=== PATIENT | female | born 1985 | race Two or more races ===

== ENCOUNTER 2024-03-14 18:29 | Inpatient (IN) | payer MEDICAID, OTHER ==
[~2024-03-14] VITALS: Ht 157.5 cm; Wt 116.4 kg
--- NOTE | 2024-03-14 18:38 | ECG ---
[facility] Test Date: 2024-03-14 Test Time: 18:33:48 Pat Name: KENTON WATT Department: er Room: 0279 Gender: F Unit Supervisor: gp : 1985 Requested By: CASSANDRA CASH Order Number: [id number] Reading MD: Wood Wiley Measurements Intervals [place] Rate: 132 P: 20 CT: 99 QRS: 40 QRSD: 90 T: -3 QT: 334 QTc: 495 Interpretive Statements Sinus tachycardia Borderline low voltage, extremity leads Borderline prolonged QT interval Electronically Signed On 03-15-2024 18:27:42 PST by Wood Wiley Please click the below link to view image of tracing.
[2024-03-14] MEDS: SODIUM CHLORIDE 0.9% 1,000 ML IV ONE ×2 (19:01→20:00)
--- NOTE | 2024-03-14 19:12 | ED.PDOC ---
History of Present Illness HPI Comments 38 y/o F is BIBA with c/o abnormal vaginal bleeding and dizziness, today. Patient endorses on unprovoked onset of heavy bleeding following her usual period onset for the past 3x days, with associated intermittent dizziness episodes since. She comments on going through her pads every 30x minutes and have a near-syncopal episode, today. Per EMS report, patient was found with a blood systolic blood pressure in the low 80's and tachycardic with a rate of 144 and was given IV fluids en route. Patient has no reported weakness, lightheadedness, fever, chills, abdominal pain, or other associated symptoms or modifiers at thirst time. Chief Complaint: Vaginal Bleed Time Seen by MD: 19:00 Primary Care Provider: UNKNOWN Reviewed Notes: Nurses Notes, Wharf Attendant Notes, Medications, Allergies Allergies: Coded Allergies: NO KNOWN ALLERGIES (Unverified , 03/14/24) Information Source: Patient, Emergency Med Personnel Mode of Arrival: EMS Severity: Moderate Timing: Days Duration: Since onset Prehospital treatment: 12 Lead EKG, Director Title, IVF Past Medical History Past Medical History (Other): obesity Surgical History: Denies all surgeries GASFITTER History: Denies all GASFITTER Hx Family History Family History: Unknown Social History Smoker: Non-Smoker Alcohol: Denies ETOH Use Drugs: Denies Drug Use Lives In: Home Genitourinary: reports: abnormal vagina bleeding Neurological: reports: dizziness All Other Systems: Reviewed and Negative (negative unless otherwise stated above or in HPI) Physical Exam General Appearance: Moderate Distress, Obese HEENT: Normal ENT Inspection, Pharynx Normal, TMs Normal Neck: Full Range of Motion, Non-Tender, Normal, Normal Inspection Respiratory: Chest Non-Tender, Lungs Clear, No Accessory Muscle Use, No Respiratory Distress, Normal Breath Sounds Cardiovascular: No Edema, No JVD, No Murmur, No Gallop, Normal Peripheral Pulses, Regular Rate/Rhythm Breast Exam: Deferred Gastrointestinal: No Organomegaly, Non Tender, No Pulsatile Mass, Normal Bowel Sounds, Soft Genitalia: Deferred Pelvic: Deferred Rectal: Deferred Extremities: No calf tenderness, Normal capillary refill, Normal inspection, Normal range of motion, Non-tender, No pedal edema Musculoskeletal : Apperance: Normal Neurologic: Alert, showroom manager II-XII nml as Tested, No Motor Deficits, Normal Affect, Normal Mood, No Sensory Deficits Cerebellar Function: Normal Reflexes: Normal Skin: Dry, Pallor, Warm Lymphatic: No Adenopathy Was a procedure done? Was a procedure done?: No EKG EKG : Pulse Rate (adult): 132 [place]: Normal Cardiac Rhythm: ST Block: None Hypertrophy: None ST: Normal Differential Dx Considerations may include: anemia, hypotension, vertigo, electrolyte imbalance, dehydration X-Ray, Labs, Meds, VS Vital Signs Date Time Temp Pulse Resp B/P (MAP) Pulse Ox O2 Delivery O2 Flow Rate FiO2 03/14/24 21:30 98.4 124 18 102/54 98.4 03/14/24 21:10 98.6 125 23 104/55 98.6 03/14/24 19:12 132 03/14/24 19:00 129 03/14/24 18:59 129 20 98/51 (67) 98 03/14/24 18:39 98.8 138 19 104/66 (79) 99 03/14/24 18:33 132 Lab Test 03/14/24 18:59 Range/Units White Blood Count 20.3 H 4.4-10.8 10^3/uL Red Blood Count 1.43 L 4.0-5.20 10^6/uL Hemoglobin 4.9 *L 12.2-16.2 g/dL Hematocrit 14.9 L 36.0-46.0 % Mean Corpuscular Volume 103.7 H 80.0-100.0 fL Mean Corpuscular Hemoglobin 34.1 H 28.0-32.0 pg Mean Corpuscular Hemoglobin Concent 32.9 32.0-36.0 g/dL Red Cell Distribution Width 13.8 11.8-14.3 % Platelet Count 196 140-450 10^3/uL Mean Platelet Volume 8.9 6.9-10.8 fL Neutrophils (%) (Auto) 37.0-80.0 % Lymphocytes (%) (Auto) 10.0-50.0 % Monocytes (%) (Auto) 0.0-12.0 % Basophils (%) (Auto) 0.0-2.0 % Neutrophils # (Auto) 1.6-8.6 10 ^3/uL Lymphocytes # (Auto) 0.4-5.4 10 ^3/uL Monocytes # (Auto) 0-1.3 10 ^3/uL Differential Total Cells Counted 100.0 100 Neutrophils % (Manual) 73 37.0-80.0 Band Neutrophils % (Manual) 4 Lymphocytes % (Manual) 18 10.0-50.0 Monocytes % (Manual) 5 0-12 Eosinophils % (Manual) 0 0-7 Basophils % (Manual) 0 0.0-2.0 Metamyelocytes % (manual) 0 Myelocytes % (Manual) 0 Promyelocytes % (Manual) 0 Blast Cells % (Manual) 0 Reactive Lymphocytes 0 Platelet Estimate Adequate Prothrombin Time 12.6 H 9.3-11.8 sec Prothrombin Time INR 1.21 H 0.9-1.15 Activated Partial Thromboplast Time 20.3 L 24.5-34.5 SEC D-Dimer, Quantitative 0.39 0.0-0.49 mg/L FEU Sodium Level 139 136-145 mmol/L Potassium Level 4.2 3.5-5.1 mmol/L Chloride Level 107 98-107 mmol/L Carbon Dioxide Level 23 20-31 mmol/L Anion Gap 9 5-15 Blood Urea Nitrogen 18 9-23 mg/dL Creatinine 0.97 0.550-1.02 mg/dL Glomerular Filtration Rate Calc 77 >90 mL/min BUN/Creatinine Ratio 18.6 10.0-20.0 Serum Glucose 200 H 74-106 mg/dL Calcium Level 7.5 L 8.7-10.4 mg/dL Current Medications Medications (Trade) Dose Ordered Sig/Diane Route Start Time Stop Time Status Last Admin Sodium Chloride 1,000 ml @ 1,000 mls/hr Q1H ONCE IV 03/14/24 18:45 03/14/24 19:44 DC 03/14/24 19:01 Sodium Chloride 1,000 ml @ 150 mls/hr Q6H40M ONCE IV 03/14/24 18:45 03/15/24 01:24 03/14/24 20:00 [place] [id number] Ph: [phone] DIAGNOSTIC IMAGING Diagnostic Imaging Report : [id number] Signed PATIENT: KENTON WATT ACCT: [id number] UNIT: [id number] : 1985 LOC: ER ROOM / BED: / AGE / SEX: 38 / F ADM STATUS: REG ER SERVICE [id number] ORDERING PHYSICIAN: CASSANDRA CASH MD PROCEDURE(s): PELUS - PELVIC REASON: vaginal bleed ORDER NUMBER(s): [id number], ACCESSION NUMBER(s): [id number] PELVIC ULTRASOUND WITH TRANSABDOMINAL IMAGING CLINICAL HISTORY: vaginal bleed COMPARISON: None TECHNIQUE: Transabdominal and transvaginal grayscale, color-flow Doppler, and duplex Doppler was performed. FINDINGS: Uterus: The uterus measures 10.8 x 4.8 x 3.8 cm. Uterine myometrium is grossly unremarkable. Endometrium: Double thickness of the endometrial stripe measures 0.3 cm Endometrial thickness is uniform. Right ovary measures 2.9 x 2.4 x 1.6 cm. Left ovary measures 3.5 x 2.3 x 4.6 cm. Both ovaries demonstrate dopplerable blood flow on spectral analysis. No significant free fluid visualized. IMPRESSION: No acute findings as visualized. ATED BY: CHANDLER RUCKER MD DICTATED DATE/TIME: 03/14/241940 SIGNED BY: CHANDLER RUCKER MD SIGNED DATE/TIME: 03/14/241940 CC: Hemoglobin 4.9. WBC is 20.3. Calcium is 7.5 CMP is normal except for glucose which is 200 Rocephin was ordered. Calcium gluconate was ordered. 2L IV fluid given. Urine test pending Blood transfusion initiated Dr. Manrique from [facility] was consulted. The patient will be admitted to the hospitalist for further evaluation and care. Time of 1ST Reevaluation: 19:30 Reevaluation 1ST: Unchanged Patient Education/Counseling: Diagnosis, Treatment Family Education/Counseling: No Family Present Departure 1 Departure Time of Disposition: 21:34 Impression: Primary Impression: Anemia Qualified Codes: D64.9 - Anemia, unspecified Additional Impressions: Vaginal bleeding Hypocalcemia Leukocytosis Qualified Codes: D72.829 - Elevated white blood cell count, unspecified Disposition: ADMITTED INPATIENT Admit to: [facility] Condition: Guarded Critical Care Note Critical Care Time?: Yes (55 min-critical care time only) Stability Stability form required: No Heart Score Heart Score: Heart Score Response (Comments) Value History N/A 0 EKG N/A 0 Age N/A 0 Risk Factors N/A 0 Troponin N/A 0 Total 0 I personally scribed for CASSANDRA CASH MD ([email or web address]) on 03/14/24 at 19:12. Electronically submitted by Milo Francis ([email or web address]). CASSANDRA CASH MD Mar 14, 2024 19:12
[2024-03-14 19:31] LABS: Hematocrit 14.9 % (36.0-46.0); Mean Corpuscular Hemoglobin 34.1 pg (28.0-32.0); Mean Corpuscular Hgb Conc. 32.9 g/dL (32.0-36.0); Mean Corpuscular Volume 103.7 fL (80.0-100.0); Platelet Count (auto) 196 10^3/uL (140-450); Red Blood Cells 1.43 10^6/uL (4.0-5.20); Red Cell Distribution Width 13.8 % (11.8-14.3); White Blood Cell 20.3 10^3/uL (4.4-10.8)
[2024-03-14 19:33] LABS: Hemoglobin 4.9 g/dL (12.2-16.2)
[2024-03-14 19:34] LABS: Anion Gap 9 (5-15); Carbon Dioxide 23 mmol/L (20-31); Potassium 4.2 mmol/L (3.5-5.1); Sodium 139 mmol/L (136-145)
[2024-03-14 19:35] LABS: Basophils % (manual) 0 (0.0-2.0); Blast Cells 0; Eosinophils % (manual) 0 (0-7); Metamyelocytes % 0; Myelocytes % 0; Promyelocytes % 0; Reactive Lymphocytes 0
[2024-03-14 19:37] LABS: INR 1.21 (0.9-1.15); Partial Thromboplastin Time 20.3 SEC (24.5-34.5); Prothrombin Time 12.6 sec (9.3-11.8)
[2024-03-14 19:40] LABS: BUN/Creatinine Ratio 18.6 (10.0-20.0); Blood Urea Nitrogen 18 mg/dL (9-23)
[2024-03-14 19:42] LABS: Calcium 7.5 mg/dL (8.7-10.4); Chloride 107 mmol/L (98-107); Glucose 200 mg/dL (74-106)
--- NOTE | 2024-03-14 19:43 | DVH ---
PELVIC ULTRASOUND WITH TRANSABDOMINAL IMAGING CLINICAL HISTORY: vaginal bleed COMPARISON: None TECHNIQUE: Transabdominal and transvaginal grayscale, color-flow Doppler, and duplex Doppler was per formed. FINDINGS: Uterus: The uterus measures 10.8 x 4.8 x 3.8 cm. Uterine myometrium is grossly unremarkable. Endometrium: Double thickness of the endometrial stripe measures 0.3 cm Endometrial thickness is unif orm. Right ovary measures 2.9 x 2.4 x 1.6 cm. Left ovary measures 3.5 x 2.3 x 4.6 cm. Both ovaries demonst rate dopplerable blood flow on spectral analysis. No significant free fluid visualized. IMPRESSION: No acute findings as visualized.
[2024-03-14 20:46] LABS: Band Neutrophils % (manual) 4; Lymphocytes % (manual) 18 (10.0-50.0); Monocytes % (manual) 5 (0-12); Platelet Estimate Adequate
[2024-03-14 21:10] VITALS: BP 104/55; PULSE 125; RESP 23; TEMP 98.6
[2024-03-14 21:30] VITALS: BP 102/54; PULSE 124; RESP 18; TEMP 98.4
[2024-03-14] MEDS: cefTRIAXone 1GM/50ML D5W 50 ML IV ONE (22:20)
[2024-03-14] MEDS ORDERED: ONDANSETRON HCL 4 MG/2 ML VIAL IV PRN (22:30)
[2024-03-14] MEDS ORDERED: ACETAMINOPHEN 325 MG TAB PO PRN (22:30)
--- NOTE | 2024-03-14 22:36 | DVHHP2 ---
History of Present Illness Reason for Visit: DIZZINESS History of Present Illness 38 year old female presents for evaluation dizziness. Patient endorses a four day history of abnormal vaginal bleed. Patient reports having her last. Six weeks ago which was normal. Patient has been heavy vaginal bleed over the past four days with blood clots and today has been using one pad every 30-40 minutes. She developed chest pain with associated shortness for breath and dizziness. On arrival patient's pressure was in the 80s and heart rate in the 140s. She denies any other acute complaints at the moment. Past Medical History Denies Past Surgical History Denies Family History Noncontributory Smoke: No ALCOHOL: none Drugs: None Lives: with Family Review of Systems Review of Systems Review of systems are currently negative otherwise addressed HPI. Allergies: Coded Allergies: NO KNOWN ALLERGIES (Unverified , 03/14/24) Exam Vital Signs Vital Signs Date Time Temp Pulse Resp B/P (MAP) Pulse Ox O2 Delivery O2 Flow Rate FiO2 03/14/24 21:30 98.4 124 18 102/54 98.4 03/14/24 19:30 Room Air* 0 21 03/14/24 18:59 98 Exam Gen: 38-year-old female in mild distress, obese Skin: Warm, dry, normal color and texture, no rash. HEENT: Normocephalic atraumatic, mucous membranes moist and pink. Neck: Cervical and supraclavicular nodes normal without enlargement, trachea is midline, thyroid gland is normal without masses. Pulmonary: Clear to auscultation and percussion bilaterally. Cardiac: Sinus tachycardia Abdomen: Soft, nontender, nondistended, bowel sounds present all 4 quadrants, no guarding, no rigidity, no organomegaly. Extremities: No cyanosis, clubbing, no edema Neuro: Cranial nerves II through XII grossly intact, normal affect and speech, no focal motor deficits. Labs/Xrays ORDERING PHYSICIAN: CASSANDRA CASH MD PROCEDURE(s): PELUS - PELVIC REASON: vaginal bleed ORDER NUMBER(s): [id number], ACCESSION NUMBER(s): [id number] PELVIC ULTRASOUND WITH TRANSABDOMINAL IMAGING CLINICAL HISTORY: vaginal bleed COMPARISON: None TECHNIQUE: Transabdominal and transvaginal grayscale, color-flow Doppler, and duplex Doppler was performed. FINDINGS: Uterus: The uterus measures 10.8 x 4.8 x 3.8 cm. Uterine myometrium is grossly unremarkable. Endometrium: Double thickness of the endometrial stripe measures 0.3 cm Endometrial thickness is uniform. Right ovary measures 2.9 x 2.4 x 1.6 cm. Left ovary measures 3.5 x 2.3 x 4.6 cm. Both ovaries demonstrate dopplerable blood flow on spectral analysis. No significant free fluid visualized. IMPRESSION: No acute findings as visualized. Labs Test 03/14/24 18:59 Range/Units White Blood Count 20.3 H 4.4-10.8 10^3/uL Red Blood Count 1.43 L 4.0-5.20 10^6/uL Hemoglobin 4.9 *L 12.2-16.2 g/dL Hematocrit 14.9 L 36.0-46.0 % Mean Corpuscular Volume 103.7 H 80.0-100.0 fL Mean Corpuscular Hemoglobin 34.1 H 28.0-32.0 pg Mean Corpuscular Hemoglobin Concent 32.9 32.0-36.0 g/dL Red Cell Distribution Width 13.8 11.8-14.3 % Platelet Count 196 140-450 10^3/uL Mean Platelet Volume 8.9 6.9-10.8 fL Neutrophils (%) (Auto) 37.0-80.0 % Lymphocytes (%) (Auto) 10.0-50.0 % Monocytes (%) (Auto) 0.0-12.0 % Basophils (%) (Auto) 0.0-2.0 % Neutrophils # (Auto) 1.6-8.6 10 ^3/uL Lymphocytes # (Auto) 0.4-5.4 10 ^3/uL Monocytes # (Auto) 0-1.3 10 ^3/uL Differential Total Cells Counted 100.0 100 Neutrophils % (Manual) 73 37.0-80.0 Band Neutrophils % (Manual) 4 Lymphocytes % (Manual) 18 10.0-50.0 Monocytes % (Manual) 5 0-12 Eosinophils % (Manual) 0 0-7 Basophils % (Manual) 0 0.0-2.0 Metamyelocytes % (manual) 0 Myelocytes % (Manual) 0 Promyelocytes % (Manual) 0 Blast Cells % (Manual) 0 Reactive Lymphocytes 0 Platelet Estimate Adequate Prothrombin Time 12.6 H 9.3-11.8 sec Prothrombin Time INR 1.21 H 0.9-1.15 Activated Partial Thromboplast Time 20.3 L 24.5-34.5 SEC D-Dimer, Quantitative 0.39 0.0-0.49 mg/L FEU Sodium Level 139 136-145 mmol/L Potassium Level 4.2 3.5-5.1 mmol/L Chloride Level 107 98-107 mmol/L Carbon Dioxide Level 23 20-31 mmol/L Anion Gap 9 5-15 Blood Urea Nitrogen 18 9-23 mg/dL Creatinine 0.97 0.550-1.02 mg/dL Glomerular Filtration Rate Calc 77 >90 mL/min BUN/Creatinine Ratio 18.6 10.0-20.0 Serum Glucose 200 H 74-106 mg/dL Calcium Level 7.5 L 8.7-10.4 mg/dL Assessment/Plan Assessment/Plan Assessment Symptomatic anemia Menorrhagia Hyperglycemia Coagulopathy Plan Admit the patient to [facility] to the hospitalist OBGYN aware of the case and will consult on the patient in the morning Transfuse 4 units of packed red cells Continue treatment per orders. Plan discussed with: Patient My Orders Orders - ROBBIN TREVIÑO Procedure Category Date Status Time * Documentation Specialist Consultation CONS 03/14/24 Transmitted 22:25 Hemoglobin A1c LAB 03/14/24 Transmitted 22:25 Ceftriaxone Ivpb PHA 03/15/24 Transmitted Rocephin 09:00 Admit ADMIT 03/14/24 Transmitted 22:25 Ondansetron Hcl PHA 03/14/24 Transmitted (Zofran) 22:30 Complete Blood Count LAB 03/15/24 Verified 04:00 Comprehensive LAB 03/15/24 Verified Metabolic Panel 04:00 Condition: Stable GEORGE 03/14/24 Transmitted 22:25 Acetaminophen Tablet PHA 03/14/24 Transmitted (Tylenol Tablet) 22:30 Bedrest With Bathroom GEORGE 03/14/24 Transmitted Privileg 22:25 Consistent DIET 03/15/24 Transmitted Carb(Ccho)Diabetes Breakfast Date of Service: Mar 14, 2024 Billing Provider: ROBBIN TREVIÑO Common Visit Codes: [id number] INP/OBS CARE (HIGH) ROBBIN TREVIÑO Mar 14, 2024 22:36
[2024-03-14] MEDS: CALCIUM GLUC 1,000mg/50ml-NS 50 ML IV ONE (22:52)
[2024-03-14 23:09] LABS: Urine Bacteria MANY /hpf (None Seen); Urine Blood 3+ /uL (Negative); Urine Clarity Ex.Turbid (Clear); Urine Mucus FEW (None Seen); Urine Protein, UAD 2+ (Negative); Urine Specific Gravity 1.018 (1.001-1.035); Urine Squamous Epithelial Cell None Seen /hpf (<5); Urine Urobilinogen Normal (Negative); Urine WBC 768 /hpf (0 - 5); Urine WBC Clumps PRESENT /hpf (None Seen)
[2024-03-14 23:10] LABS: Urine Color DARK RED (Yellow)
[2024-03-15] VITALS (15 sets, daily range): BP systolic 107–136; BP diastolic 40–90; PULSE 71–122; RESP 15–20; TEMP 97.9–98.8; O2SAT 95–100
--- NOTE | 2024-03-15 00:09 | DVHINCON2 ---
Date of service: Mar 14, 2024 Reason for Consultation Blood loss anemia Heavy menses History of Present Illness HPI 38y female. GoPo LMP 03/11/24. Cycles are irregular since menarche at age 11 Menstrual cycles every 6 to 8 weeks, flow up to 10 days. Endorses heavy menses using 2-3 pads/hr for last 4 days Flow is now slow and not heavy. Denies pain or dysmenorrhea Patient admitted w/ symptomatic anemia, Hb 4.9 (macrocytic). 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 Patient is virgin, has never had intercourse with male or females. No hx of STI Pelvic US on admission is within normal limits ROS: + Facial hair, obesity, irreg menses. Denies melana stools or hematochezia PMHx: Obesity Past Surg Hx: none Family Hx: Denies FHx of ovarian, breast or uterine cancer Past Medical History Cardiac: No pertinent Hx Pulmonary: No pertinent Hx Central Nervous System: No pertinent Hx GI: No pertinent Hx Hemotology/Oncology: Anemia NOS Hepatobiliary: No pertinent Hx Psychiatric: No pertinent Hx Musculoskeletal: No pertinent Hx Rheumotologic: No pertinent Hx Infectious Disease: No peritnent Hx ENT: No pertinent Hx Renal/: No pertinent Hx Endocrine: No pertinent Hx Dermatology: No pertinent Hx Past Surgical History: No pertinent Hx Smoker: No Hx (Negative) Alocohol: None Drugs: None Lives with: With family Review of Systems Constitutional: Malaise, Weakness Ears, Nose, & Throat: No symptom reported Eyes: No symptom reported Pulmonary/Respiratory: No symptom reported Cardiovascular: Palpitations, Orthopnea, Lt Headedness Gastrointestinal: No symptom reported Genitourinary: No symptom reported Musculoskeletal: No symptom reported Skin: Other (Hirsutism +) Psychiatric: No symptom reported Endocrine: No symptom reported Hemotologic/Lymphatic: Easily bleeding, Anemia H&P Exam Vital Signs Vital Signs Date Time Temp Pulse Resp B/P (MAP) Pulse Ox O2 Delivery O2 Flow Rate FiO2 03/14/24 21:30 98.4 124 18 102/54 98.4 03/14/24 19:30 Room Air* 0 21 03/14/24 18:59 98 General Appeara: Obese Head Exam: Normal inspection Neck Exam: Normal inspection Eye Exam: bilateral eye PERRL Pulmonary/Respiratory: Normal inspection, Normal breath sounds, Lungs clear Cardiovascular/Chest: Normal inspection Abdominal Exam: Normal bowel sounds, No masses Rectal Exam: Deferred Pelvic Exam: Not done 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 FINDINGS: Uterus: The uterus measures 10.8 x 4.8 x 3.8 cm. Uterine myometrium is grossly unremarkable. Endometrium: Double thickness of the endometrial stripe measures 0.3 cm Endometrial thickness is uniform. Right ovary measures 2.9 x 2.4 x 1.6 cm. Left ovary measures 3.5 x 2.3 x 4.6 cm. Both ovaries demonstrate dopplerable blood flow on spectral analysis. No significant free fluid visualized. IMPRESSION: No acute findings as visualized. ATED BY: CHANDLER RUCKER MD DICTATED DATE/TIME: 03/14/241940 SIGNED BY: CHANDLER RUCKER MD SIGNED DATE/TIME: 03/14/241940 Labs Test 03/14/24 22:53 03/14/24 18:59 Range/Units Urine Color Dark red Yellow Urine Clarity Ex.turbid Clear Urine pH 7.0 5.0-9.0 Urine Specific [place] 1.018 1.001-1.035 Urine Protein 2+ H Negative Urine Ketones Trace Negative Urine Blood 3+ H Negative /uL Urine Nitrite Negative Negative Urine Bilirubin Negative Negative Urine Urobilinogen Normal Negative mg/dL Urine Leukocyte Esterase 3+ Negative /uL Urine RBC 6680 0 - 4 /hpf Urine WBC 768 0 - 5 /hpf Urine WBC Clumps Present None Seen /hpf Urine Squamous Epithelial Cells None seen <5 /hpf Urine Bacteria Many H None Seen /hpf Urine Mucus Few None Seen Urine Glucose Normal Normal mg/dL Urine Test Negative Negative White Blood Count 20.3 H 4.4-10.8 10^3/uL Red Blood Count 1.43 L 4.0-5.20 10^6/uL Hemoglobin 4.9 *L 12.2-16.2 g/dL Hematocrit 14.9 L 36.0-46.0 % Mean Corpuscular Volume 103.7 H 80.0-100.0 fL Mean Corpuscular Hemoglobin 34.1 H 28.0-32.0 pg Mean Corpuscular Hemoglobin Concent 32.9 32.0-36.0 g/dL Red Cell Distribution Width 13.8 11.8-14.3 % Platelet Count 196 140-450 10^3/uL Mean Platelet Volume 8.9 6.9-10.8 fL Neutrophils (%) (Auto) 37.0-80.0 % Lymphocytes (%) (Auto) 10.0-50.0 % Monocytes (%) (Auto) 0.0-12.0 % Basophils (%) (Auto) 0.0-2.0 % Neutrophils # (Auto) 1.6-8.6 10 ^3/uL Lymphocytes # (Auto) 0.4-5.4 10 ^3/uL Monocytes # (Auto) 0-1.3 10 ^3/uL Differential Total Cells Counted 100.0 100 Neutrophils % (Manual) 73 37.0-80.0 Band Neutrophils % (Manual) 4 Lymphocytes % (Manual) 18 10.0-50.0 Monocytes % (Manual) 5 0-12 Eosinophils % (Manual) 0 0-7 Basophils % (Manual) 0 0.0-2.0 Metamyelocytes % (manual) 0 Myelocytes % (Manual) 0 Promyelocytes % (Manual) 0 Blast Cells % (Manual) 0 Reactive Lymphocytes 0 Platelet Estimate Adequate Prothrombin Time 12.6 H 9.3-11.8 sec Prothrombin Time INR 1.21 H 0.9-1.15 Activated Partial Thromboplast Time 20.3 L 24.5-34.5 SEC D-Dimer, Quantitative 0.39 0.0-0.49 mg/L FEU Sodium Level 139 136-145 mmol/L Potassium Level 4.2 3.5-5.1 mmol/L Chloride Level 107 98-107 mmol/L Carbon Dioxide Level 23 20-31 mmol/L Anion Gap 9 5-15 Blood Urea Nitrogen 18 9-23 mg/dL Creatinine 0.97 0.550-1.02 mg/dL Glomerular Filtration Rate Calc 77 >90 mL/min BUN/Creatinine Ratio 18.6 10.0-20.0 Serum Glucose 200 H 74-106 mg/dL Calcium Level 7.5 L 8.7-10.4 mg/dL Assessment/Plan Admitting Diagnosis: 1. Symptomatic (macrocytic) Anemia 2. Menometrorrhagia 3. Possible PCOS syndrome Plan No acute CARD CLEANER intervention indicated at this time I have ordered labs, work up for AUB and macrocytic anemia Pelvic US is WNL and urine HCG is neg Recommend DMPA injection or OCP's (if not contraindicated, no liver disease) to regulate menses Can also consider Lysteda (Tranexamic acid TID x 5d each menses ) F/U in outpatient CARD CLEANER clinic for pelvic exam, PAP and PCOS work up and follow up once discharged Recommend hematology consult for eval of severe macrocytic anemia. CARD CLEANER will sign off. Plan discussed with: Patient Date of Service: Mar 15, 2024 Billing Provider: ELEONORA IVLLASENOR DO Common Visit Codes: CONSULT ONLY Consultation Codes: [id number] CONSULT <60MIN ELEONORA VILLASENOR DO Mar 15, 2024 00:09
[2024-03-15] MEDS ORDERED: CETI10CA PO (03:58)
[2024-03-15 11:35] LABS: Hematocrit 29.5 % (36.0-46.0); Hemoglobin 9.8 g/dL (12.2-16.2); Mean Corpuscular Hemoglobin 31.4 pg (28.0-32.0); Mean Corpuscular Hgb Conc. 33.1 g/dL (32.0-36.0); Platelet Count (auto) 150 10^3/uL (140-450); Red Cell Distribution Width 20.1 % (11.8-14.3); White Blood Cell 20.9 10^3/uL (4.4-10.8)
[2024-03-15 11:43] LABS: Alanine Aminotransferase 26 U/L (7-40); Alkaline Phosphatase 57 U/L (46-116); Anion Gap 8 (5-15); Aspartate Aminotransferase 24 U/L (13-40); BUN/Creatinine Ratio 17.8 (10.0-20.0); Bilirubin, Total 0.5 mg/dL (0.2-1.0); Blood Urea Nitrogen 16 mg/dL (9-23); Carbon Dioxide 24 mmol/L (20-31); Chloride 107 mmol/L (98-107); Sodium 139 mmol/L (136-145)
[2024-03-15 11:47] LABS: Basophils % (manual) 0 (0.0-2.0); Blast Cells 0; Eosinophils % (manual) 0 (0-7); Metamyelocytes % 0; Myelocytes % 0; Promyelocytes % 0; Reactive Lymphocytes 0
[2024-03-15 11:50] LABS: Folate (Folic Acid) 13.08 ng/mL (>5.38)
[2024-03-15 11:56] LABS: Albumin 3.2 g/dL (3.2-4.8); Calcium 8.2 mg/dL (8.7-10.4); Glucose 147 mg/dL (74-106)
[2024-03-15 12:11] LABS: Follicle Stimulating Hormone 1.5 IU/L (SEE BELOW); Leuteinizing Hormone 0.2 IU/L; Prolactin 11.05 ng/mL (2.8-29.2)
--- NOTE | 2024-03-15 12:16 | DVHPN2 ---
Reviewed: Care Plan, H&P, Labs, Medications, Previous Orders, Radiology Changes from previous H/P or p: No Changes Objective Vitals Vital Signs Date Time Temp Pulse Resp B/P (MAP) Pulse Ox O2 Delivery O2 Flow Rate FiO2 03/15/24 09:47 98.3 99 15 120/64 98.3 03/15/24 08:43 100 03/15/24 03:36 Room Air* 0 21 Intake/Output Intake and Output 03/15/24 07:00 Intake Total 2850 ml Output Total 0 ml Balance 2850 ml Intake Oral 100 ml IV Total 2150 ml Blood Product 600 ml Output Urine Total 0 ml Other 0 ml # Voids 1 Medications Current Medications Medications Dose Ordered Sig/Diane Route Start Time Stop Time Status Last Admin Dose Admin Ceftriaxone Sodium 50 ml @ 100 mls/hr DAILY@09 IV 03/16/24 09:00 Ondansetron HCl 4 mg Q4HP PRN IV 03/14/24 22:30 Acetaminophen 650 mg Q6HP PRN PO 03/14/24 22:30 Laboratory Results Laboratory Tests 03/15/24 11:00 Chemistry Test 03/14/24 18:59 03/15/24 11:00 Calcium Level 7.5 mg/dL (8.7-10.4) L 8.2 mg/dL (8.7-10.4) L Albumin 3.2 g/dL (3.2-4.8) Total Protein 5.0 g/dL (5.7-8.2) L Coagulation Test 03/14/24 18:59 Prothrombin Time 12.6 sec (9.3-11.8) H Prothrombin Time INR 1.21 (0.9-1.15) H Activated Partial Thromboplast Time 20.3 SEC (24.5-34.5) L D-Dimer, Quantitative 0.39 mg/L FEU (0.0-0.49) LFT Test 03/15/24 11:00 Alanine Aminotransferase (ALT) 26 U/L (7-40) Alkaline Phosphatase 57 U/L (46-116) Aspartate Amino Transferase (AST) 24 U/L (13-40) Total Bilirubin 0.5 mg/dL (0.2-1.0) HgA1c, TSH Test 03/15/24 11:00 Hemoglobin A1c 5.6 % A1C (<5.7) Thyroid Stimulating Hormone (TSH) 6.18 uIU/mL (0.55-4.78) H Urinalysis Test 03/14/24 22:53 Urine Color Dark red (Yellow) Urine Clarity Ex.turbid (Clear) Urine pH 7.0 (5.0-9.0) Urine Specific [place] 1.018 (1.001-1.035) Urine Protein 2+ (Negative) H Urine Ketones Trace (Negative) Urine Blood 3+ /uL (Negative) H Urine Nitrite Negative (Negative) Urine Bilirubin Negative (Negative) Urine Urobilinogen Normal mg/dL (Negative) Urine Leukocyte Esterase 3+ /uL (Negative) Urine RBC 6680 /hpf (0 - 4) Urine WBC 768 /hpf (0 - 5) Urine WBC Clumps Present /hpf (None Seen) Urine Squamous Epithelial Cells None seen /hpf (<5) Urine Bacteria Many /hpf (None Seen) H Urine Mucus Few (None Seen) Urine Glucose Normal mg/dL (Normal) Urine Test Negative (Negative) Labs and/or images reviewed: Labs reviewed by me, Image(s) reviewed by me Assessment/Plan Assessment/Plan Septic shock with the elevated white count low blood pressure, altered mental status secondary to acute urinary tract infection, blood cultures urine cultures Acute urinary tract infection: Rocephin urine cultures Acute symptomatic anemia with hemoglobin 4.9, improved 9.8 after 3 units RBC transfusion Menometrorrhagia: Seen by Gynecology Dr. Ba advised outpatient follow up for full workup Possible PCOS syndrome Time spent 55 minutes Condition guarded Plan discussed with: Patient My Orders Orders - KATELYN BECKMAN MD Procedure Category Date Status Time Blood Culture KATHLEEN 03/15/24 Verified 12:14 Urine Bacterial KATHLEEN 03/15/24 Verified Culture 12:14 Date of Service: Mar 15, 2024 Billing Provider: KATELYN BECKMAN MD Common Visit Codes: [id number] INP/OBS CARE(HIGH) KATELYN BECKMAN MD Mar 15, 2024 12:16
[2024-03-15 13:13] LABS: Band Neutrophils % (manual) 2; Lymphocytes % (manual) 30 (10.0-50.0); Monocytes % (manual) 3 (0-12)
[2024-03-15 13:14] LABS: Platelet Estimate Adequate
[2024-03-16 07:06] LABS: Estradiol 79.7 pg/mL (.)
--- NOTE | 2024-03-16 08:48 | DVHDS2 ---
Discharge Summary Date of Admission Mar 14, 2024 at 22:25 Date of Discharge: Mar 15, 2024 Admitting Diagnosis Generalized weakness and dizziness Wounds: None Labs/Diagnostic Data: Laboratory Results Test 03/15/24 12:40 03/15/24 11:00 03/14/24 22:53 03/14/24 18:59 Total Estradiol 79.7 pg/mL (.) Testosterone Level 46 ng/dL (8-60) White Blood Count 20.9 10^3/uL (4.4-10.8) Red Blood Count 3.10 10^6/uL (4.0-5.20) Hemoglobin 9.8 g/dL (12.2-16.2) Hematocrit 29.5 % (36.0-46.0) Mean Corpuscular Volume 95.0 fL (80.0-100.0) Mean Corpuscular Hemoglobin 31.4 pg (28.0-32.0) Mean Corpuscular Hemoglobin Concent 33.1 g/dL (32.0-36.0) Red Cell Distribution Width 20.1 % (11.8-14.3) Platelet Count 150 10^3/uL (140-450) Mean Platelet Volume 8.5 fL (6.9-10.8) Neutrophils (%) (Auto) % (37.0-80.0) Lymphocytes (%) (Auto) % (10.0-50.0) Monocytes (%) (Auto) % (0.0-12.0) Basophils (%) (Auto) % (0.0-2.0) Neutrophils # (Auto) 10 ^3/uL (1.6-8.6) Lymphocytes # (Auto) 10 ^3/uL (0.4-5.4) Monocytes # (Auto) 10 ^3/uL (0-1.3) Differential Total Cells Counted 100.0 (100) Neutrophils % (Manual) 65 (37.0-80.0) Band Neutrophils % (Manual) 2 Lymphocytes % (Manual) 30 (10.0-50.0) Monocytes % (Manual) 3 (0-12) Eosinophils % (Manual) 0 (0-7) Basophils % (Manual) 0 (0.0-2.0) Metamyelocytes % (manual) 0 Myelocytes % (Manual) 0 Promyelocytes % (Manual) 0 Blast Cells % (Manual) 0 Reactive Lymphocytes 0 Platelet Estimate Adequate Reticulocyte Count (auto) 5.31 % (0.5-1.5) Sodium Level 139 mmol/L (136-145) Potassium Level 4.0 mmol/L (3.5-5.1) Chloride Level 107 mmol/L (98-107) Carbon Dioxide Level 24 mmol/L (20-31) Anion Gap 8 (5-15) Blood Urea Nitrogen 16 mg/dL (9-23) Creatinine 0.90 mg/dL (0.550-1.02) Glomerular Filtration Rate Calc 84 mL/min (>90) BUN/Creatinine Ratio 17.8 (10.0-20.0) Serum Glucose 147 mg/dL (74-106) Hemoglobin A1c 5.6 % A1C (<5.7) Calcium Level 8.2 mg/dL (8.7-10.4) Total Bilirubin 0.5 mg/dL (0.2-1.0) Aspartate Amino Transferase (AST) 24 U/L (13-40) Alanine Aminotransferase (ALT) 26 U/L (7-40) Alkaline Phosphatase 57 U/L (46-116) Lactate Dehydrogenase 244 U/L (120-246) Total Protein 5.0 g/dL (5.7-8.2) Albumin 3.2 g/dL (3.2-4.8) Vitamin B12 Level 727 pg/mL (211-911) Folic Acid 13.08 ng/mL (>5.38) Thyroid Stimulating Hormone (TSH) 6.18 uIU/mL (0.55-4.78) Follicle Stimulating Hormone 1.50 IU/L (SEE BELOW) Luteinizing Hormone 0.2 IU/L Prolactin 11.05 ng/mL (2.8-29.2) Beta HCG, Quantitative 0.6 mIU/mL (1.5-4.2) HIV (1&2) Antibody Negative (Negative) Urine Color Dark red (Yellow) Urine Clarity Ex.turbid (Clear) Urine pH 7.0 (5.0-9.0) Urine Specific [place] 1.018 (1.001-1.035) Urine Protein 2+ (Negative) Urine Ketones Trace (Negative) Urine Blood 3+ /uL (Negative) Urine Nitrite Negative (Negative) Urine Bilirubin Negative (Negative) Urine Urobilinogen Normal mg/dL (Negative) Urine Leukocyte Esterase 3+ /uL (Negative) Urine RBC 6680 /hpf (0 - 4) Urine WBC 768 /hpf (0 - 5) Urine WBC Clumps Present /hpf (None Seen) Urine Squamous Epithelial Cells None seen /hpf (<5) Urine Bacteria Many /hpf (None Seen) Urine Mucus Few (None Seen) Urine Glucose Normal mg/dL (Normal) Urine Test Negative (Negative) Prothrombin Time 12.6 sec (9.3-11.8) Prothrombin Time INR 1.21 (0.9-1.15) Activated Partial Thromboplast Time 20.3 SEC (24.5-34.5) D-Dimer, Quantitative 0.39 mg/L FEU (0.0-0.49) Other Laboratory Tests 03/15/24 11:00 Brief Hx & Hospital Course: Discharge summary dictated after the patient left AMA 38-year-old female male came in complaining of dizziness and generalized weakness found to have a hemoglobin 4.9 improved to 9.8 after 3 units RBC transfusion pelvic ultrasound was negative patient had menometrorrhagia leading to blood loss anemia. Seen by division engineer who advised outpatient follow up for full gynecological workup. Patient also had sepsis secondary to acute urinary tract infection and treated with Rocephin blood cultures urine cultures pending. Meanwhile patient decided to leave AMA and left AMA. Consequences complications including possible explained to the patient and she verbalized understanding. Consults/Reason for consult Human Machine Interface Engineer Dr. Louis Operations or Procedures RBC transfusion Pelvic ultrasound Condition at Discharge: Fair Final Diagnosis/Problems List Septic shock with the elevated white count low blood pressure, altered mental status secondary to acute urinary tract infection, blood cultures urine cultures Acute urinary tract infection: Rocephin urine cultures Acute symptomatic anemia with hemoglobin 4.9, improved 9.8 after 3 units RBC transfusion Menometrorrhagia: Seen by Gynecology Dr. Ba advised outpatient follow up for full workup Possible PCOS syndrome Discharge Disposition: AMA Discharge Instruct/Medications Diet comment: Not applicable Patient left AMA Activity comment: Not applicable Patient left AMA Follow Up/Referral: Not applicable Patient left AMA Medications: Not applicable Patient left AMA 39 (Time taken for discharge summary 39 minutes) Discharge Statement: "Patient was advised to return to the ER or call 911 if any headaches, dizziness, shortness of breath, chest pain, abdominal pain, bleeding, fevers, or worsening of medical condition. Patient was counseled about treatment plan, medications, possible side effects, patientverbalized understanding. All questions were answered to the best of my ability. This discharge took greater then 30 minutes in planning, reviewing documentation, counseling the patient, and discussing with other team members." ASSESSMENT ASSESSMENT Hospital Course Improved Assessment Date of Service: Mar 16, 2024 Billing Provider: KATELYN BECKMAN MD Common Visit Codes: 84152-OQX/[id number] DISCH DAY >30min KATELYN BECKMAN MD Mar 16, 2024 08:48
[2024-03-16] MEDS ORDERED: cefTRIAXone 1GM/50ML D5W 50 ML IV SCH (09:00)
== END 2024-03-15 17:40 | disposition left against medical advice (07) | DRG 720 ==
LOC: EDBD 18:29 → ER 18:32 → OVERFLOW 22:25 → WEST WING 03-15 03:34
PROVIDERS: ADMIT Nurse Practitioner; ATTEND Family Medicine
PROC: 30233N1 Transfusion of Nonautologous Red Blood Cells into Peripheral Vein, Percutaneous Approach (ICD-10-PCS; principal; 2024-03-15)
DX: A41.9 Sepsis, unspecified organism (principal); R65.21 Severe sepsis with septic shock; E83.51 Hypocalcemia; D68.9 Coagulation defect, unspecified; D62 Acute posthemorrhagic anemia; D53.9 Nutritional anemia, unspecified; E28.2 Polycystic ovarian syndrome; N92.0 Excessive and frequent menstruation with regular cycle; R73.9 Hyperglycemia, unspecified; Z53.29 Procedure and treatment not carried out because of patient's decision for other reasons; E66.9 Obesity, unspecified; N39.0 Urinary tract infection, site not specified; Z68.42 Body mass index [BMI] 45.0-49.9, adult; Z87.891 Personal history of nicotine dependence
CPT/HCPCS: 36415; 76856; 80048; 80053; 81001; 81025; 82607; 82670; 82746; 83001; 83002; 83036; 83615; 84146; 84402; 84403; 84443; 84702; 85007; 85027; 85045; 85379; 85610; 85730; 86703; 86803; 86850; 86900; 86901; 86920; 93005; 99291; G0378